=== PATIENT | female | born 1960 | race Hispanic/Latino ===

== ENCOUNTER 2024-09-09 18:01 | Emergency (ER) | payer OTHER ==
[~2024-09-09] VITALS: Ht 152.4 cm; Wt 72.6 kg
[2024-09-09 18:04] VITALS: BP 170/87; PULSE 75; RESP 20; TEMP 98
[2024-09-09 18:55] LABS: EOSINOPHILS # (AUTO) 0.39 K/uL (0.00-0.70); EOSINOPHILS % (AUTO) 3.8 % (0.0-8.0); HEMATOCRIT 38.5 % (36-48); IMMATURE GRANULOCYTE ABSOLUTE 0.03 K/uL (0-1); LYMPHOCYTES # (AUTO) 3.9 K/uL (1.0-4.8); LYMPHOCYTES % (AUTO) 37.3 % (21.0-51.0); MEAN CORPUSCULAR HGB CONC 33.8 g/dL (32.0-36.0); MEAN CORPUSCULAR VOLUME 85.9 fL (79-99); MONOCYTES # (AUTO) 0.9 K/uL (0.1-1.0); MONOCYTES % (AUTO) 8.8 % (3.0-13.0); NEUTROPHILS # (AUTO) 5.1 K/uL (1.8-7.7); NEUTROPHILS % (AUTO) 48.8 % (40.0-77.0); PLATELET COUNT (AUTO) 425 K/uL (130-400); RED BLOOD CELL COUNT(AUTO) 4.48 MIL/uL (4.00-5.50); RED CELL DISTRIBUTION WIDTH 15.4 % (11.0-15.5); WHITE BLOOD COUNT (AUTO) 10.3 K/uL (4.8-10.8)
[2024-09-09 19:03] LABS: POTASSIUM 3.4 mmol/L (3.5-5.1)
[2024-09-09 19:13] LABS: MAGNESIUM 1.9 mg/dL (1.80-2.40)
[2024-09-09 19:20] LABS: B-TYPE NATRIURETIC PEPTIDE 74 pg/mL (0-100)
[2024-09-09] MEDS: acetaMINOPHEN WITH coDEINE 1 TAB TAB PO ONE (20:14)
[2024-09-09] MEDS: PoTASSium BIcarbonate/CIT AC 25 MEQ TABLET.EFF PO ONE (20:14)
== END 2024-09-09 21:09 | disposition home or self-care (01) ==
LOC: EDH 18:01
DX: I10 Essential (primary) hypertension (principal); E87.6 Hypokalemia
CPT/HCPCS: 36415; 80048; 83735; 83880; 84484; 85025; 93005